=== PATIENT | female | born 1935 | race Caucasian/White ===

== ENCOUNTER 2019-03-11 06:13 | Inpatient (IN) | payer OTHER ==
[~2019-03-11] VITALS: Ht 165.1 cm; Wt 55.3 kg
[2019-03-11 06:25] VITALS: BP_SYST 110
[2019-03-11] MEDS ORDERED: ESCI10TA PO (06:44)
[2019-03-11] MEDS ORDERED: APIX2.5T PO (06:44)
[2019-03-11] MEDS ORDERED: DONE10TA44 PO (06:50)
[2019-03-11] MEDS ORDERED: ISO10 PO (06:50)
[2019-03-11] MEDS ORDERED: L.RH1CAP PO (06:50)
[2019-03-11] MEDS ORDERED: LEVO25TA7 PO (06:50)
[2019-03-11] MEDS ORDERED: MEMA5TAB PO (06:50)
[2019-03-11] MEDS ORDERED: ASCO500T20 PO (06:50)
[2019-03-11] MEDS ORDERED: VITA100T3 PO (06:50)
[2019-03-11] MEDS ORDERED: ATORVASTATIN PO (06:52)
[2019-03-11] MEDS ORDERED: MORPHINE 2 MG/ML INJ. SYRINGE IM ONE (07:00)
[2019-03-11] MEDS ORDERED: LIDOCAINE 1% 10 MG/ML, 20 ML MDV INJ ONE (07:00)
[2019-03-11] MEDS ORDERED: LIDOCAINE 1%, 20 ML MDV 20 ML ONE (07:05)
[2019-03-11] MEDS ORDERED: PROPOFOL 200MG/ 20ML VIAL (DIPRIVAN) IV ONE (07:15)
[2019-03-11 08:34] LABS: BASOPHILS % (AUTO) 0.2 % (0.0-2.0); LYMPHOCYTES # (AUTO) 0.5 K/uL (1.0-5.5); LYMPHOCYTES % (AUTO) 6.3 % (20.5-51.5); MEAN CORPUSCULAR HEMOGLOBIN 24 pg (27-31); MEAN CORPUSCULAR HGB CONC 31 % (32-36); MEAN CORPUSCULAR VOLUME 79 fL (79.0-98.0); MONOCYTES # (AUTO) 0.4 K/uL (0.0-1.0); NEUTROPHILS # (AUTO) 6.6 K/uL (1.8-7.7); NEUTROPHILS % (AUTO) 88.5 % (40.0-70.0); PLATELET COUNT (AUTO) 210 K/uL (130-430); RED CELL DISTRIBUTION WIDTH 17.3 % (9.0-15.0); WHITE BLOOD COUNT (AUTO) 7.5 K/uL (4.8-10.8)
[2019-03-11 08:44] LABS: ANION GAP 10 (5-15); CALCIUM 8.7 mg/dL (8.4-11.0); CHLORIDE 107 mmol/L (98-107); CREATININE 0.96 mg/dL (0.55-1.30); GLUCOSE 116 mg/dL (70-99); SODIUM SERUM 139 mmol/L (136-145); UREA NITROGEN, BLOOD 27 mg/dL (8-21)
[2019-03-11 08:49] LABS: RED BLOOD CELL COUNT(AUTO) 1.75 MIL/uL (4.2-6.2)
[2019-03-11 08:50] LABS: HEMATOCRIT 13.8 % (36-48); HEMOGLOBIN 4.2 g/dL (12.0-16.0)
[2019-03-11 09:02] LABS: ALANINE AMINOTRANSFERASE 47 U/L (12-78); ALBUMIN 3.1 g/dL (3.4-4.8); ASPARTATE AMINOTRANSFERASE 45 U/L (10-37); THYROID STIMULATING HORMONE 2.42 uIu/mL (0.36-3.74); TOTAL BILIRUBIN 0.3 mg/dL (0.0-1.0)
[2019-03-11 09:03] LABS: ALCOHOL, BLOOD < 3 mg/dL (<10)
[2019-03-11 09:26] LABS: BILIRUBIN,URINE NEGATIVE (NEGATIVE); BLOOD, URINE 1+ (NEGATIVE); CLARITY/URINE CLEAR (CLEAR); COLOR,URINE YELLOW (YELLOW); GLUCOSE,URINE NEGATIVE (NEGATIVE); KETONES,URINE TRACE (NEGATIVE); LEUKOCYTE ESTERASE ,URINE TRACE (NEGATIVE); NITRITE, URINE NEGATIVE (NEGATIVE); PH,URINE 5.5 (5.0-8.0); PROTEIN URINE NEGATIVE (NEGATIVE); UROBILINOGEN,URINE 0.2 (0.2-1.0)
[2019-03-11 09:30] LABS: BACTERIA,URINE FEW /HPF (None Seen); RBC,URINE 0-3 /HPF (0-3); WBC,URINE 0-3 /HPF (0-3)
[2019-03-11] MEDS ORDERED: ALBUTEROL SULFATE 0.083% 2.5 MG/3 ML VIAL.NEB INH PRN (09:30)
[2019-03-11] MEDS ORDERED: ACETAMINOPHEN 325 MG TABLET PO PRN (09:30)
[2019-03-11 09:41] LABS: INR 1.3 (0.8-1.2); PROTHROMBIN TIME 12.9 SECS (9.5-12.5)
[2019-03-11] MEDS ORDERED: FUROSEMIDE 20 MG/2 ML VIAL IVP ONE ×3 (09:45)
[2019-03-11] MEDS ORDERED: FUROSEMIDE 20 MG/2 ML VIAL ONE (13:31)
[2019-03-11 14:54] VITALS: BP_SYST 121
[2019-03-11 15:06] VITALS: BP_SYST 121
[2019-03-11 15:55] VITALS: BP_SYST 121
[2019-03-11 16:00] VITALS: BP_SYST 134
[2019-03-11] MEDS: HYDROcodone/ACETAMIN 5-325 MG TAB (NORCO/ VICODIN) PO PRN (17:55)
[2019-03-11 20:00] VITALS: BP_SYST 108
[2019-03-11] MEDS ORDERED: ISOSORBIDE DINITRATE 10 MG TABLET (ISORDIL) PO SCH (21:00)
[2019-03-11 22:01] LABS: BASOPHILS % (AUTO) 0.1 % (0.0-2.0); HEMATOCRIT 23.4 % (36-48); HEMOGLOBIN 7.6 g/dL (12.0-16.0); LYMPHOCYTES # (AUTO) 0.8 K/uL (1.0-5.5); LYMPHOCYTES % (AUTO) 7.9 % (20.5-51.5); MEAN CORPUSCULAR HEMOGLOBIN 26 pg (27-31); MEAN CORPUSCULAR HGB CONC 33 % (32-36); MEAN CORPUSCULAR VOLUME 80 fL (79.0-98.0); MONOCYTES # (AUTO) 0.9 K/uL (0.0-1.0); MONOCYTES % (AUTO) 9.6 % (1.7-9.3); NEUTROPHILS % (AUTO) 82.4 % (40.0-70.0); PLATELET COUNT (AUTO) 198 K/uL (130-430); RED BLOOD CELL COUNT(AUTO) 2.92 MIL/uL (4.2-6.2); RED CELL DISTRIBUTION WIDTH 17.5 % (9.0-15.0); WHITE BLOOD COUNT (AUTO) 9.7 K/uL (4.8-10.8)
[2019-03-11] MEDS: ASCORBIC ACID 500 MG TABLET PO SCH (22:04)
[2019-03-11] MEDS: DONEPEZIL HCL 5 MG TABLET (ARICEPT) PO SCH (22:05)
[2019-03-11] MEDS: MEMANTINE HCL 5 MG TABLET PO SCH (22:05)
[2019-03-12 00:45] VITALS: BP_SYST 128
[2019-03-12] MEDS ORDERED: FUROSEMIDE 20 MG/2 ML VIAL ONE (02:48)
[2019-03-12] MEDS: HYDROcodone/ACETAMIN 5-325 MG TAB (NORCO/ VICODIN) PO PRN (03:38)
[2019-03-12 04:00] VITALS: BP_SYST 118
[2019-03-12 07:37] LABS: BASOPHILS % (AUTO) 0.2 % (0.0-2.0); EOSINOPHILS % (AUTO) 0.1 % (0.0-4.0); HEMATOCRIT 22.6 % (36-48); HEMOGLOBIN 7.4 g/dL (12.0-16.0); LYMPHOCYTES # (AUTO) 0.7 K/uL (1.0-5.5); LYMPHOCYTES % (AUTO) 7.4 % (20.5-51.5); MEAN CORPUSCULAR HEMOGLOBIN 26 pg (27-31); MEAN CORPUSCULAR HGB CONC 33 % (32-36); MEAN CORPUSCULAR VOLUME 80 fL (79.0-98.0); MONOCYTES # (AUTO) 0.9 K/uL (0.0-1.0); MONOCYTES % (AUTO) 9.8 % (1.7-9.3); NEUTROPHILS # (AUTO) 7.6 K/uL (1.8-7.7); NEUTROPHILS % (AUTO) 82.5 % (40.0-70.0); PLATELET COUNT (AUTO) 192 K/uL (130-430); RED BLOOD CELL COUNT(AUTO) 2.84 MIL/uL (4.2-6.2); RED CELL DISTRIBUTION WIDTH 17.5 % (9.0-15.0); WHITE BLOOD COUNT (AUTO) 9.3 K/uL (4.8-10.8)
[2019-03-12 07:47] LABS: ALANINE AMINOTRANSFERASE 43 U/L (12-78); ALBUMIN 3.2 g/dL (3.4-4.8); ANION GAP 8 (5-15); ASPARTATE AMINOTRANSFERASE 32 U/L (10-37); CALCIUM 8.1 mg/dL (8.4-11.0); CHLORIDE 102 mmol/L (98-107); CREATININE 0.82 mg/dL (0.55-1.30); GLUCOSE 102 mg/dL (70-99); SODIUM SERUM 140 mmol/L (136-145); TOTAL BILIRUBIN 0.9 mg/dL (0.0-1.0); UREA NITROGEN, BLOOD 18 mg/dL (8-21)
[2019-03-12 07:52] LABS: POTASSIUM 2.7 mmol/L (3.5-5.1)
[2019-03-12 08:13] VITALS: BP_SYST 115
[2019-03-12] MEDS: ASCORBIC ACID 500 MG TABLET PO SCH ×2 (08:58→22:26)
[2019-03-12] MEDS: ATORVASTATIN 10 MG TABLET PO SCH (08:59)
[2019-03-12] MEDS: MEMANTINE HCL 5 MG TABLET PO SCH ×2 (08:59→22:25)
[2019-03-12] MEDS: LEVOTHYROXINE SODIUM 0.025 MG TABLET PO SCH (08:59)
[2019-03-12] MEDS: CITALOPRAM HYDROBROMIDE 20 MG TABLET PO SCH (08:59)
[2019-03-12] MEDS ORDERED: POTASSIUM CHLORIDE 40 MEQ in NS 250 ML IV ONE (09:00)
[2019-03-12] MEDS ORDERED: POTASSIUM CHLORIDE 20 MEQ TAB.PRT.SR PO ONE (09:00)
[2019-03-12] MEDS: PANTOPRAZOLE SODIUM 40 MG/VIAL (PROTONIX) IVP SCH (09:02)
[2019-03-12] MEDS ORDERED: ISOSORBIDE DINITRATE 20 MG TABLET (ISORDIL) PO ONE (09:45)
[2019-03-12 11:20] VITALS: BP_SYST 119
[2019-03-12] MEDS ORDERED: MAGNESIUM CITRATE 300 ML ORAL SOLUTION PO ONE (12:00)
[2019-03-12 15:35] VITALS: BP_SYST 111
[2019-03-12] MEDS ORDERED: GOLYTELY / COLYTE SOLUTION 4 LITERS PO ONE (16:00)
[2019-03-12] MEDS: MORPHINE 2 MG/ML INJ. SYRINGE IVP PRN ×2 (16:03→20:03)
[2019-03-12] MEDS ORDERED: BISACODYL 5 MG TABLET.DR (DULCOLAX) PO ONE (17:00)
[2019-03-12 20:00] VITALS: BP_SYST 98
[2019-03-12] MEDS: ISOSORBIDE DINITRATE 20 MG TABLET (ISORDIL) PO SCH (22:26)
[2019-03-12] MEDS: DONEPEZIL HCL 5 MG TABLET (ARICEPT) PO SCH (22:26)
[2019-03-13 00:46] VITALS: BP_SYST 115
[2019-03-13] MEDS: MORPHINE 2 MG/ML INJ. SYRINGE IVP PRN (06:36)
[2019-03-13 07:24] LABS: BASOPHILS % (AUTO) 0.2 % (0.0-2.0); EOSINOPHILS % (AUTO) 0.3 % (0.0-4.0); HEMOGLOBIN 7.9 g/dL (12.0-16.0); LYMPHOCYTES # (AUTO) 0.8 K/uL (1.0-5.5); LYMPHOCYTES % (AUTO) 9.4 % (20.5-51.5); MEAN CORPUSCULAR HEMOGLOBIN 27 pg (27-31); MEAN CORPUSCULAR HGB CONC 33 % (32-36); MEAN CORPUSCULAR VOLUME 83 fL (79.0-98.0); MONOCYTES # (AUTO) 0.8 K/uL (0.0-1.0); MONOCYTES % (AUTO) 9.4 % (1.7-9.3); NEUTROPHILS # (AUTO) 6.5 K/uL (1.8-7.7); NEUTROPHILS % (AUTO) 80.7 % (40.0-70.0); PLATELET COUNT (AUTO) 168 K/uL (130-430); RED CELL DISTRIBUTION WIDTH 19.4 % (9.0-15.0)
[2019-03-13 07:38] LABS: ALANINE AMINOTRANSFERASE 29 U/L (12-78); ALBUMIN 2.8 g/dL (3.4-4.8); ANION GAP 5 (5-15); ASPARTATE AMINOTRANSFERASE 23 U/L (10-37); CHLORIDE 105 mmol/L (98-107); CREATININE 0.66 mg/dL (0.55-1.30); GLUCOSE 103 mg/dL (70-99); POTASSIUM 3.4 mmol/L (3.5-5.1); SODIUM SERUM 140 mmol/L (136-145); TOTAL BILIRUBIN 0.8 mg/dL (0.0-1.0); UREA NITROGEN, BLOOD 12 mg/dL (8-21)
[2019-03-13 07:51] LABS: CALCIUM 7.9 mg/dL (8.4-11.0)
[2019-03-13 08:00] VITALS: BP_SYST 108
[2019-03-13] MEDS: PANTOPRAZOLE SODIUM 40 MG/VIAL (PROTONIX) IVP SCH (08:19)
[2019-03-13] MEDS: ATORVASTATIN 10 MG TABLET PO SCH (09:00)
[2019-03-13] MEDS: MEMANTINE HCL 5 MG TABLET PO SCH ×2 (09:00→21:44)
[2019-03-13] MEDS: ASCORBIC ACID 500 MG TABLET PO SCH ×2 (09:00→21:44)
[2019-03-13] MEDS: LEVOTHYROXINE SODIUM 0.025 MG TABLET PO SCH (09:00)
[2019-03-13] MEDS: CITALOPRAM HYDROBROMIDE 20 MG TABLET PO SCH (09:00)
[2019-03-13] MEDS: ISOSORBIDE DINITRATE 20 MG TABLET (ISORDIL) PO SCH ×2 (09:00→21:47)
[2019-03-13] MEDS: MIDAZOLAM HCL 5 MG/5 ML VIAL ONE ×4 (09:15→09:38)
[2019-03-13] MEDS: MEPERIDINE HCL/PF 100 MG/ML AMP ONE ×4 (09:15→09:38)
[2019-03-13] MEDS ORDERED: SIMETHICONE 40 MG/0.6 ML ML ONE (09:21)
[2019-03-13 12:42] VITALS: BP_SYST 115
[2019-03-13 16:55] VITALS: BP_SYST 107
[2019-03-13 19:35] VITALS: BP_SYST 106
[2019-03-13] MEDS: DONEPEZIL HCL 5 MG TABLET (ARICEPT) PO SCH (21:45)
[2019-03-13] MEDS: HYDROcodone/ACETAMIN 5-325 MG TAB (NORCO/ VICODIN) PO PRN (21:55)
[2019-03-14 01:17] VITALS: BP_SYST 106
[2019-03-14 07:14] LABS: INR 1.1 (0.8-1.2); PROTHROMBIN TIME 11.5 SECS (9.5-12.5)
[2019-03-14 07:28] LABS: BASOPHILS % (AUTO) 0.5 % (0.0-2.0); EOSINOPHILS # (AUTO) 0.1 K/uL (0.0-0.4); EOSINOPHILS % (AUTO) 1.4 % (0.0-4.0); HEMATOCRIT 24.8 % (36-48); HEMOGLOBIN 7.9 g/dL (12.0-16.0); LYMPHOCYTES % (AUTO) 12.9 % (20.5-51.5); MEAN CORPUSCULAR HEMOGLOBIN 27 pg (27-31); MEAN CORPUSCULAR HGB CONC 32 % (32-36); MEAN CORPUSCULAR VOLUME 83 fL (79.0-98.0); MONOCYTES # (AUTO) 0.7 K/uL (0.0-1.0); MONOCYTES % (AUTO) 9.3 % (1.7-9.3); NEUTROPHILS # (AUTO) 5.6 K/uL (1.8-7.7); NEUTROPHILS % (AUTO) 75.9 % (40.0-70.0); PLATELET COUNT (AUTO) 178 K/uL (130-430); RED BLOOD CELL COUNT(AUTO) 2.98 MIL/uL (4.2-6.2); RED CELL DISTRIBUTION WIDTH 19.6 % (9.0-15.0); WHITE BLOOD COUNT (AUTO) 7.4 K/uL (4.8-10.8)
[2019-03-14 07:30] LABS: ALANINE AMINOTRANSFERASE 24 U/L (12-78); ALBUMIN 2.5 g/dL (3.4-4.8); ANION GAP 7 (5-15); ASPARTATE AMINOTRANSFERASE 18 U/L (10-37); CALCIUM 8.1 mg/dL (8.4-11.0); CHLORIDE 104 mmol/L (98-107); CREATININE 0.66 mg/dL (0.55-1.30); GLUCOSE 101 mg/dL (70-99); POTASSIUM 3.6 mmol/L (3.5-5.1); SODIUM SERUM 138 mmol/L (136-145); TOTAL BILIRUBIN 0.8 mg/dL (0.0-1.0); UREA NITROGEN, BLOOD 13 mg/dL (8-21)
[2019-03-14 08:00] VITALS: BP_SYST 113
[2019-03-14] MEDS: PANTOPRAZOLE SODIUM 40 MG/VIAL (PROTONIX) IVP SCH (08:49)
[2019-03-14] MEDS: CITALOPRAM HYDROBROMIDE 20 MG TABLET PO SCH (09:00)
[2019-03-14] MEDS: ATORVASTATIN 10 MG TABLET PO SCH (09:00)
[2019-03-14] MEDS: ISOSORBIDE DINITRATE 20 MG TABLET (ISORDIL) PO SCH ×2 (09:00→22:14)
[2019-03-14] MEDS: LEVOTHYROXINE SODIUM 0.025 MG TABLET PO SCH (09:00)
[2019-03-14] MEDS: MEMANTINE HCL 5 MG TABLET PO SCH ×2 (09:00→22:14)
[2019-03-14] MEDS: ASCORBIC ACID 500 MG TABLET PO SCH ×2 (09:00→22:14)
[2019-03-14] MEDS ORDERED: METOCLOPRAMIDE HCL 10 MG/2 ML VIAL IVP PRN (11:15)
[2019-03-14] MEDS ORDERED: LR 1,000 ML IV SCH (11:15)
[2019-03-14] MEDS ORDERED: MORPHINE 4 MG/ML INJ. SYRINGE IVP PRN ×3 (11:15)
[2019-03-14 13:05] VITALS: BP_SYST 123
[2019-03-14 16:20] VITALS: BP_SYST 123
[2019-03-14] MEDS: DONEPEZIL HCL 5 MG TABLET (ARICEPT) PO SCH (22:14)
[2019-03-14] MEDS: MORPHINE 2 MG/ML INJ. SYRINGE IVP PRN (22:14)
[2019-03-14] MEDS: HYDROcodone/ACETAMIN 5-325 MG TAB (NORCO/ VICODIN) PO PRN (23:51)
[2019-03-15 00:45] VITALS: BP_SYST 141
[2019-03-15] MEDS: HYDROcodone/ACETAMIN 5-325 MG TAB (NORCO/ VICODIN) PO PRN (06:28)
[2019-03-15 07:55] VITALS: BP_SYST 111
[2019-03-15] MEDS: PANTOPRAZOLE SODIUM 40 MG/VIAL (PROTONIX) IVP SCH (08:49)
[2019-03-15] MEDS: ATORVASTATIN 10 MG TABLET PO SCH (08:49)
[2019-03-15] MEDS: CITALOPRAM HYDROBROMIDE 20 MG TABLET PO SCH (08:49)
[2019-03-15] MEDS: ASCORBIC ACID 500 MG TABLET PO SCH (08:50)
[2019-03-15] MEDS: MEMANTINE HCL 5 MG TABLET PO SCH (08:50)
[2019-03-15] MEDS: LEVOTHYROXINE SODIUM 0.025 MG TABLET PO SCH (08:50)
[2019-03-15] MEDS: ISOSORBIDE DINITRATE 20 MG TABLET (ISORDIL) PO SCH (09:00)
[2019-03-15 11:27] VITALS: BP_SYST 111
[2019-03-15 15:48] VITALS: BP_SYST 124
[2019-03-15] MEDS ORDERED: PROPOFOL 200MG/ 20ML VIAL (DIPRIVAN) IV ONE (17:17)
[2019-03-15] MEDS ORDERED: SEVOFLURANE 15 MIN GAS INH ONE (17:17)
[2019-03-15] MEDS ORDERED: LR 1,000 ML IV.SOLN IV ONE (17:17)
[2019-03-15] MEDS ORDERED: ONDANSETRON HCL 4 MG/2 ML VIAL IVP ONE (17:17)
[2019-03-15] MEDS ORDERED: ROCURONIUM BROMIDE 10 MG/ML (ZEMURON) IV ONE (17:17)
[2019-03-15] MEDS ORDERED: NS IRRIG SOLN 5000 ML IR ONE (17:17)
[2019-03-15] MEDS ORDERED: fentaNYL CITRATE/PF 100 MCG/2 ML AMP IVP ONE (17:17)
[2019-03-15] MEDS ORDERED: MIDAZOLAM HCL 5 MG/5 ML VIAL IVP ONE (17:17)
[2019-03-15] MEDS ORDERED: ePHEDrine sulfate 50 MG/ML VIAL IVP ONE (17:17)
== END 2019-03-15 19:55 | disposition left against medical advice (07) | DRG 510 ==
LOC: SED 06:13 → STU 09:25
PROVIDERS: ADMIT Internal Medicine Hospice and Palliative Medicine; ATTEND Internal Medicine Hospice and Palliative Medicine
PROC: 30233N1 Transfusion of Nonautologous Red Blood Cells into Peripheral Vein, Percutaneous Approach (ICD-10-PCS; 2019-03-11)
PROC: 2W38X1Z Immobilization of Right Upper Extremity using Splint (ICD-10-PCS; 2019-03-11)
PROC: 0DB68ZX Excision of Stomach, Via Natural or Artificial Opening Endoscopic, Diagnostic (ICD-10-PCS; 2019-03-11)
PROC: 0DJD8ZZ Inspection of Lower Intestinal Tract, Via Natural or Artificial Opening Endoscopic (ICD-10-PCS; 2019-03-13)
PROC: 0PSH34Z Reposition Right Radius with Internal Fixation Device, Percutaneous Approach (ICD-10-PCS; principal; 2019-03-14 10:30)
DX: S52.591A Other fractures of lower end of right radius, initial encounter for closed fracture (principal); K57.31 Diverticulosis of large intestine without perforation or abscess with bleeding; D64.9 Anemia, unspecified; K64.8 Other hemorrhoids; E03.9 Hypothyroidism, unspecified; E78.5 Hyperlipidemia, unspecified; F03.90 Unspecified dementia, unspecified severity, without behavioral disturbance, psychotic disturbance, mood disturbance, and anxiety; F19.10 Other psychoactive substance abuse, uncomplicated; I10 Essential (primary) hypertension; I25.10 Atherosclerotic heart disease of native coronary artery without angina pectoris; I48.2 Chronic atrial fibrillation; W01.0XXA Fall on same level from slipping, tripping and stumbling without subsequent striking against object, initial encounter; Z79.01 Long term (current) use of anticoagulants; Y93.89 Activity, other specified; Y92.89 Other specified places as the place of occurrence of the external cause; Y99.8 Other external cause status; Z79.899 Other long term (current) drug therapy; Z79.82 Long term (current) use of aspirin; Z95.5 Presence of coronary angioplasty implant and graft
CPT/HCPCS: 36415; 43239; 45378; 70450-TC; 71045; 73502; 76000; 78278-TC; 80053; 81000-TC; 83051; 84443-TC; 84484; 85025; 85610-TC; 85730-TC; 86886; 86900; 86901; 86920; 87081; 93005; 99291; A9560; C1713; C9113; G0378; G0482; J1940; J2001; J2175; J2250; J2270; J2405; J2704; J3010; J3480; J7040; J7050; J7120; P9021